=== PATIENT | male | born 1970 | race African-American/Black ===

== ENCOUNTER → 2016-09-09 | Outpatient (CLI) | payer BC ==
[~2016-09-09] MED LIST: ALDACTONE25 MG PO; ASPIRIN EC81 M1 PO; BUMEX PO; CARVEDILOL25 MG PO; CLEOCIN; COLCRYS0.6 M2 PO; CRESTOR40 MG PO; HYDRALAZINE HC100 MG PO; ISOSORBIDE DINI30 MG PO; METOLAZONE2.5 MG PO; NOVOLIN 70/30 V10 M1; POTASSIUM40 MEQ/15 PO; VITAMIN D1000 UNIT PO
[2016-09-09 10:39] LABS: BUN/CREATININE RATIO 17.5; CALCIUM SERUM 9.4 mg/dL (8.4-10.2); CREATININE SERUM 2.4 mg/dL (0.6-1.4); POTASSIUM 3.6 mmol/L (3.5-5.1)
== END | disposition home or self-care (01) ==
LOC: SLABONLY 09:53
PROVIDERS: Internal Medicine
DX: I42.9 Cardiomyopathy, unspecified (principal)
CPT/HCPCS: 36415; 80048

== ENCOUNTER → 2016-12-12 | Outpatient (CLI) | payer BC ==
[2016-12-12 13:23] LABS: THYROID STIMULATING HORMONE 2.18 uIU/ml (0.34-5.60)
[2016-12-12 15:01] LABS: FREE THYROXIN (T4) 0.96 ng/dL (0.58-1.64)
[2016-12-12 15:04] LABS: FOLATE (FOLIC ACID) 5.4 ng/mL (>5.8)
== END | disposition home or self-care (01) ==
LOC: SLAB 11:39
PROVIDERS: Internal Medicine Endocrinology, Diabetes & Metabolism
DX: E55.9 Vitamin D deficiency, unspecified (principal); E56.9 Vitamin deficiency, unspecified; E11.9 Type 2 diabetes mellitus without complications
CPT/HCPCS: 82306; 82607; 82746; 84439; 84443

== ENCOUNTER → 2016-12-12 | Outpatient (CLI) | payer BC ==
[2016-12-12 13:16] LABS: BUN/CREATININE RATIO 18.4; CALCIUM SERUM 8.7 mg/dL (8.4-10.2); CREATININE SERUM 2.5 mg/dL (0.6-1.4); GLOM FILT RATE Estimated 34.9 mL/min (>60); POTASSIUM 3.2 mmol/L (3.5-5.1)
== END | disposition home or self-care (01) ==
LOC: SLAB 11:41
PROVIDERS: Internal Medicine
DX: I42.9 Cardiomyopathy, unspecified (principal)
CPT/HCPCS: 36415; 80048